=== PATIENT | male | born 1960 | race African-American/Black ===

== ENCOUNTER 2019-07-28 11:39 | Emergency (ER) | payer MEDICAID, OTHER ==
[~2019-07-28] VITALS: Ht 172.7 cm; Wt 109.8 kg
[2019-07-28 12:17] VITALS: BP 152/88
== END 2019-07-28 14:37 | disposition home or self-care (01) ==
LOC: ER 11:39
DX: I16.0 Hypertensive urgency (principal); I10 Essential (primary) hypertension; F17.210 Nicotine dependence, cigarettes, uncomplicated; Z76.0 Encounter for issue of repeat prescription